=== PATIENT | male | born 1990 ===

== ENCOUNTER 2018-09-03 11:31 | Emergency (ER) | payer OTHER ==
[2018-09-03] MEDS ORDERED: Sodium Chloride 0.9% 1,000 ML IV STA (11:51)
[2018-09-03 12:35] LABS: BASO % 0.4 % (0.0-2.0); EOS % 0.1 % (0.0-4.0); HEMOGLOBIN 15.2 g/dL (12.0-18.0); LYMPH # 0.6 K/uL (1.0-4.3); MEAN CELL VOLUME 88.2 fl (80.0-94.0); MEAN CORPUSCULAR HEMOGLOBIN 30.2 pg (27.0-31.0); MEAN CORPUSCULAR HGB CONC 34.3 g/dL (33.0-37.0); MEAN PLATELET VOLUME 8.8 fl (7.2-11.7); MONO # 0.9 K/uL (0.0-0.8); MONO % 8.8 % (0.0-10.0); NEUT # 8.9 K/uL (1.8-7.0); NEUT % 84.7 % (50.0-75.0); NRBC % 0.1 % (0.0-0.0); PLATELET COUNT 178 K/uL (130-400); RBC 5.03 Mil/uL (4.40-5.90); RED CELL DISTRIBUTION WIDTH 13.6 % (11.5-14.5); WHITE BLOOD COUNT 10.6 K/uL (4.8-10.8)
[2018-09-03 12:46] LABS: ALB/GLOB RATIO 1.2 (1.0-2.1); ALBUMIN 4.4 g/dL (3.5-5.0); ALT/SGPT 52 U/L (21-72); AST/SGOT 43 U/L (17-59); BLOOD UREA NITROGEN 15 mg/dl (9-20); CALCIUM 8.7 mg/dL (8.4-10.2); GFR NON-AFRICAN AMERICAN > 60
--- NOTE | 2018-09-03 13:03 | RAD ---
Date of service: 09/03/2018 HISTORY: flu cough COMPARISON: No prior. FINDINGS: LUNGS: No active pulmonary disease. PLEURA: No significant pleural effusion identified, no pneumothorax apparent. CARDIOVASCULAR: No aortic atherosclerotic calcification present. Normal cardiac size. No pulmonary vascular congestion. OSSEOUS STRUCTURES: No significant abnormalities. VISUALIZED UPPER ABDOMEN: Normal. OTHER FINDINGS: None. IMPRESSION: No active disease.
[2018-09-03 13:06] LABS: LYMPHOCYTE 8 % (20-50); MONOCYTE 8 % (0-10); NEUTROPHIL 84 % (42-75); TOTAL CELLS COUNTED 100
[2018-09-03 13:07] LABS: PLATELET ESTIMATE NORMAL (NORMAL)
[2018-09-03 13:40] VITALS: BP 129/78; PULSE 105; RESP 18; TEMP 99.9; O2SAT 97
--- NOTE | 2018-09-03 13:55 | ED PDOC ---
History of Present Illness History of Present Illness: 28yo male, comes to ER reporting cough, congestion, sore throat, headache and bodyaches x 3 days. Patient reports his family is sick at home with similar complaints as well. He reports taking Tylenol and Motrin at night with minimal relief. Patient otherwise denies any photophobia, neck stiffness, difficulty breathing. No additional complaints. PMD: None provided HPI: Influenza Time Seen by Provider: 09/03/18 11:51 Chief Complaint: Flu-like Symptoms Chief Complaint (Provider): Flu like symptoms History Per: Patient Exam Limitations: no limitations Have you had recent travel within the past 21 days to any of: No Symptoms include: fever, headache, bodyaches, sore throat Sick Contacts (Context): Family Member(s) Past Medical History Reviewed: Historical Data, Nursing Documentation, Vital Signs Vital Signs: Last Vital Signs Temp 99.9 F H 09/03/18 13:40 Pulse 105 H 09/03/18 13:40 Resp 18 09/03/18 13:40 BP 129/78 09/03/18 13:40 Pulse Ox 97 09/03/18 13:40 - Medical History PMH: No Chronic Diseases - Surgical History Surgical History: No Surg Hx - Family History Family History: States: No Known Family Hx - Home Medications Home Medications: Ambulatory Orders Medication Instructions Recorded Ondansetron ODT [Zofran ODT] 4 mg PO Q6 PRN #10 odt 09/03/18 Oseltamivir Cap [Tamiflu] 75 mg PO BID #10 cap 09/03/18 RX: Ibuprofen [Motrin Tab] 600 mg PO Q6 PRN #15 tab 09/03/18 - Allergies Allergies/Adverse Reactions: Allergies Allergy/AdvReac Type Severity Reaction Status Date / Time No Known Allergies Allergy Verified 09/03/18 11:48 Review of Systems ROS Statement: Except As Marked, All Systems Reviewed And Found Negative Constitutional: Positive for: Fever, Other (bodyaches) ENT: Positive for: Nose Congestion, Throat Pain Respiratory: Positive for: Cough Skin: Negative for: Rash Neurological: Positive for: Headache. Negative for: Weakness, Numbness Physical Exam - Reviewed Nursing Documentation Reviewed: Yes Vital Signs Reviewed: Yes - Physical Exam Appears: Positive for: Non-toxic, No Acute Distress Head Exam: Positive for: ATRAUMATIC, NORMAL INSPECTION, NORMOCEPHALIC Skin: Positive for: Normal Color Eye Exam: Positive for: Normal appearance ENT: Positive for: TM Is/Are (clear bilaterally), Pharyngeal Erythema. Negative for: Tonsillar Exudate, Tonsillar Swelling Neck: Positive for: Normal, Painless ROM, Supple Cardiovascular/Chest: Positive for: Regular Rate, Rhythm Respiratory: Positive for: Normal Breath Sounds. Negative for: Wheezing Gastrointestinal/Abdominal: Positive for: Normal Exam, Soft Back: Positive for: Normal Inspection Extremity: Positive for: Normal ROM Neurologic/Psych: Positive for: Alert, Oriented. Negative for: Motor/Sensory Deficits Medical Decision Making Medical Decision Making: Impression: 28yo male exhibiting classic flu like symptoms plan: -- Rapid flu deferred due to clinical presentation Discussed risk/benefit of Tamiflu considering 3 day history of symptoms, and patient is agreeable with plan for supportive care. Patient given Tylenol, Toradol and IV fluids 1350 On reassessment, patient reports improvement in symptoms. Vital signs stable, and patient is stable for discharge home. Patient instructed on supportive care at home and expresses understanding. Scribe Attestation: Documented by Kenya Pastor acting as a scribe for Sal Rodriguez DO. Provider Attestation: All medical record entries made by the Scribe were at my direction and personally dictated by me. I have reviewed the chart and agree that the record accurately reflects my personal performance of the history, physical exam, medical decision making, and the department course for this patient. I have also personally directed, reviewed, and agree with the discharge instructions and disposition. - Laboratory Results Result Diagrams: 09/03/18 12:20 09/03/18 12:20 Lab Results: Total Bilirubin 0.7 mg/dl (0.2-1.3) 09/03/18 12:20 AST 43 U/L (17-59) 09/03/18 12:20 ALT 52 U/L (21-72) 09/03/18 12:20 Alkaline Phosphatase 55 U/L (38-126) 09/03/18 12:20 Total Protein 7.9 G/DL (6.3-8.2) 09/03/18 12:20 Albumin 4.4 g/dL (3.5-5.0) 09/03/18 12:20 Globulin 3.6 gm/dL (2.2-3.9) 09/03/18 12:20 Albumin/Globulin Ratio 1.2 (1.0-2.1) 09/03/18 12:20 - ECG O2 Sat by Pulse Oximetry: 97 Disposition - Clinical Impression Clinical Impression: Influenza-like symptoms - Patient ED Disposition Is Patient to be Admitted: No Counseled Patient/Family Regarding: Studies Performed, Diagnosis, Need For Followup, Rx Given - Disposition Referrals: [facility] [Outside] Disposition: Routine/Home Disposition Time: 13:30 Condition: STABLE Additional Instructions: Drink plenty of fluids. Tamiflu prescription provided if you prefer to try medication, but likely to be unhelpful given symptoms ongoing >48hrs. Take motrin 600mg every 6 hours for fever, headache, body aches. Return to ER for any difficulty breathing, weakness, or any concern. Prescriptions: RX: Ibuprofen [Motrin Tab] 600 mg PO Q6 PRN #15 tab PRN Reason: Pain, Moderate (4-7) Ondansetron ODT [Zofran ODT] 4 mg PO Q6 PRN #10 odt PRN Reason: Nausea/Vomiting Oseltamivir Cap [Tamiflu] 75 mg PO BID #10 cap Instructions: Flu, Adult (DC) Forms: [employer] ([place]ish), [facility] ED School/Work Excuse
== END 2018-09-03 13:37 | disposition home or self-care (01) ==
LOC: H.ER 11:31
DX: J11.1 Influenza due to unidentified influenza virus with other respiratory manifestations (principal)
CPT/HCPCS: 71045; 80053; 85025; 96361; 96374; 99284; J1885; J7030